=== PATIENT | male | born 1965 | race Caucasian/White ===

== ENCOUNTER 2021-08-28 08:45 | Outpatient (REF) | payer BC, SELFPAY | END 2021-08-28 08:46 | disposition home or self-care (01) | LOC: HO.BBR 08:45 | PROVIDERS: Visit Provider Internal Medicine | DX: Z13.89 Encounter for screening for other disorder (principal) ==

== ENCOUNTER 2021-10-18 08:06 | Outpatient (REF) | payer BC, SELFPAY | END 2021-10-18 08:07 | disposition home or self-care (01) | LOC: HO.BBR 08:06 | PROVIDERS: Visit Provider Internal Medicine | DX: Z13.89 Encounter for screening for other disorder (principal) ==

== ENCOUNTER 2021-11-30 07:54 | Outpatient (REF) | payer BC, SELFPAY | END 2021-11-30 07:55 | disposition home or self-care (01) | LOC: HO.BBR 07:54 | PROVIDERS: Visit Provider Internal Medicine | DX: Z13.89 Encounter for screening for other disorder (principal) ==

== ENCOUNTER 2022-09-06 07:50 | Outpatient (REF) | payer BC, SELFPAY | END 2022-09-06 07:51 | disposition home or self-care (01) | LOC: HO.BBR 07:50 | PROVIDERS: Visit Provider Internal Medicine | DX: Z13.89 Encounter for screening for other disorder (principal) ==

== ENCOUNTER 2023-09-08 08:23 | Outpatient (REF) | payer BC, SELFPAY | END 2023-09-08 08:24 | disposition home or self-care (01) | LOC: HO.BBR 08:23 | PROVIDERS: PCP Family Medicine; Visit Provider Internal Medicine | DX: Z13.89 Encounter for screening for other disorder (principal) ==

== ENCOUNTER 2023-10-08 14:52 | Outpatient (REF) | payer BC, SELFPAY | END 2023-10-08 14:53 | disposition home or self-care (01) | LOC: HO.BBR 14:52 | PROVIDERS: PCP Family Medicine; Visit Provider Internal Medicine | DX: Z13.89 Encounter for screening for other disorder (principal) ==

== ENCOUNTER 2023-11-05 08:03 | Outpatient (REF) | payer BC, SELFPAY | END 2023-11-05 08:04 | disposition home or self-care (01) | LOC: HO.BBR 08:03 | PROVIDERS: PCP Family Medicine; Visit Provider Internal Medicine | DX: Z13.89 Encounter for screening for other disorder (principal) ==

== ENCOUNTER 2024-09-30 08:41 | Outpatient (REF) | payer BC, SELFPAY | END 2024-09-30 08:42 | disposition home or self-care (01) | LOC: HO.BBR 08:41 | PROVIDERS: PCP Family Medicine; Visit Provider Internal Medicine | DX: Z13.89 Encounter for screening for other disorder (principal) ==

== ENCOUNTER 2024-10-28 08:47 | Outpatient (REF) | payer BC, SELFPAY | END 2024-10-28 08:48 | disposition home or self-care (01) | LOC: HO.BBR 08:47 | PROVIDERS: PCP Family Medicine; Visit Provider Internal Medicine | DX: Z13.89 Encounter for screening for other disorder (principal) ==